=== PATIENT | female | born 1965 | race Caucasian/White ===

== ENCOUNTER 2021-11-11 05:35 | Day surgery (SDC) | payer BC ==
[~2021-11-11 05:35] MED LIST: Dextrose 5%-0.45% NaCl 1,000 ML IV SCH; Sodium Chloride 0.9% 10 ML Syringe FLUSH PRN; Sodium Chloride 0.9% 10 ML Syringe FLUSH SCH
[2021-11-11] MEDS ORDERED: Midazolam 1 MG/ML 2 ML SDV IV ONE (05:36)
[2021-11-11] MEDS ORDERED: fentaNYL 100 MCG/2 ML SDV IV ONE (05:36)
[2021-11-11] MEDS: Dextrose 5%-0.45% NaCl 1,000 ML IV SCH (06:03)
[2021-11-11] MEDS ORDERED: Midazolam 1 MG/ML 2 ML SDV ONE (06:12)
[2021-11-11] MEDS ORDERED: fentaNYL 100 MCG/2 ML SDV ONE (06:13)
[2021-11-11] MEDS: fentaNYL 100 MCG/2 ML SDV IV ONE ×2 (06:38→06:39)
[2021-11-11] MEDS: Midazolam 1 MG/ML 2 ML SDV IV ONE ×6 (06:40→06:48)
== END 2021-11-11 09:00 | disposition home or self-care (01) ==
LOC: DL.ENDO 05:35
PROVIDERS: ATTEND Internal Medicine Gastroenterology
DX: Z12.11 Encounter for screening for malignant neoplasm of colon (principal); K64.8 Other hemorrhoids; K64.4 Residual hemorrhoidal skin tags; E66.09 Other obesity due to excess calories; E78.00 Pure hypercholesterolemia, unspecified; Z98.890 Other specified postprocedural states; Z88.1 Allergy status to other antibiotic agents; Z68.41 Body mass index [BMI] 40.0-44.9, adult
CPT/HCPCS: 45378; J2250; J3010; J7042